=== PATIENT | male | born 1990 | race Caucasian/White ===

== ENCOUNTER 2021-01-18 08:12 | Emergency (ER) | payer OTHER, SELFPAY ==
[2021-01-18 08:13] VITALS: BP 130/60; PULSE 110; RESP 20; TEMP 36.7; O2SAT 99
--- NOTE | 2021-01-18 08:46 | ED.BACK ---
HPI - Back Pain/Injury General Chief Complaint: Back Pain/Injury Stated Complaint: LOW BACK PAIN Time Seen by Provider: 01/18/21 08:45 Source: patient, family and RN notes reviewed Mode of arrival: ambulatory Limitations: no limitations History of Present Illness HPI Narrative: Patient 30 years old white male presents with pain across lumbar area started last night. Patient been canoeing lately, had a lot of woodwork yesterday during daytime, last night started to have some soreness across lower back, this morning could not get out of bed. Patient denies any patient denies bowel dysfunction, bladder dysfunction, altered sensation, focal weakness, or saddle numbness,. History of intermittent lower back pain, been to chiropractor intermittently. Patient denies any fever, chills, nausea, vomiting. Related Data Home Medications Medication Instructions Recorded Confirmed Preventative inhaler INHALATION 09/16/20 Rescue inhaler INHALATION 09/16/20 cetirizine mg 01/18/21 Allergies Allergy/AdvReac Type Severity Reaction Status Date / Time Sulfa (Sulfonamide Allergy Mild PARENT HAS Verified 01/18/21 08:19 Antibiotics) SEVERE ALLERGY amoxicillin Allergy Unknown VOMITING Verified 01/18/21 08:19 animal dander Allergy Unknown Sneezing Verified 01/18/21 08:19 cephalexin Allergy Unknown VOMITING Verified 01/18/21 08:19 grass pollen Allergy Unknown Sneezing Verified 01/18/21 08:19 mold Allergy Unknown Sneezing Verified 01/18/21 08:19 Penicillins Allergy Unknown Vomiting Verified 01/18/21 08:19 pollen extracts Allergy Unknown Sneezing Verified 01/18/21 08:19 [place] Allergy Mild RESPIRATORY Uncoded 09/16/20 13:38 DIFFICULTY Review of Systems Review of Systems: CONSTITUTIONAL: Denies fever, chills, or sweats. EYES: Denies visual changes, redness, or discharge. ENT: Denies rhinorrhea, congestion, sore throat, or otalgia. CARDIOVASCULAR: Denies chest pain, palpitations, or edema. RESPIRATORY: Denies cough or dyspnea. GASTROINTESTINAL: Denies abdominal pain, nausea, vomiting, or diarrhea. GENITOURINARY: Denies dysuria or hematuria. SKIN: Denies rash or itching. MUSCULOSKELETAL: Denies back pain, joint pain, or myalgia. NEUROLOGIC: Denies headache, numbness, or weakness. PSYCHIATRIC: Denies anxiety or depression. PMFSH Social History Social History Smoking status: Light tobacco smoker Tobacco type: cigarettes Alcohol intake: current Substance use: never Substance use type: does not use Gender identity (if verbalized by the patient): Male Exam Narrative: General appearance: Well-developed, well-nourished Skin: Normal color Head: Normocephalic, nontraumatic Eyes: Clear conjunctiva ENT: Oropharynx normal, ears normal, nose normal Neck: Supple, nontender Chest and respiratory: Airway patent, no respiratory distress, no accessory muscle use Heart: Regular rate/rhythm Abdomen: Soft, nontender, no organomegaly, quiet bowel sounds Vascular: Normal peripheral pulses, normal capillary refill. Musculoskeletal: Diffuse tenderness at the lumbar area, limited range of motion, negative straight leg raising test Neurologic: Alert and oriented ?3, SOFTWARE LEAD is normal as tested, no gross motor deficit Course Course Emergency Course: Improving Vital Signs Vital signs: Vital Signs Temperature 36.7 C 01/18/21 08:13 Pulse Rate 110 H 01/18/21 08:13 Respiratory Rate 20 01/18/21 08:13 Blood Pressure 130/60 01/18/21 08:13 Pulse Oximetry 99 01/18/21 08:13 Temperature 36.7 C 01/18/21 08:13 Pulse Rate 110 H 01/18/21 08:13 Respiratory Rate 20 01/18/21 08:13 Blood Pressure
[2021-01-18] MEDS: diazePAM (*CRX) 5 MG TABLET PO (09:03)
[2021-01-18] MEDS: ONDANSETRON HCL ODT 4 MG TABLET PO (09:03)
[2021-01-18] MEDS: HYDROmorphone HCL INJ (*CRX) 1 MG/ML SYR IM (09:03)
[2021-01-18] MEDS: KETOROLAC (*BKC) 60 MG/2 ML VIAL IM (09:03)
[2021-01-18 09:33] VITALS: TEMP 36.7
[2021-01-18 09:38] VITALS: BP 120/65; PULSE 58; RESP 18; O2SAT 97
== END 2021-01-18 09:40 | disposition home or self-care (01) ==
PROVIDERS: Emergency Provider Emergency Medicine
DX: S39.012A Strain of muscle, fascia and tendon of lower back, initial encounter (principal); F17.210 Nicotine dependence, cigarettes, uncomplicated; X58.XXXA Exposure to other specified factors, initial encounter
CPT/HCPCS: 96372; 99284; A9270; J1170; J1885

== ENCOUNTER → 2021-07-18 02:42 | Outpatient (CLI) | payer OTHER, SELFPAY ==
[2021-07-18 18:24] LABS: SARS-CoV-2 RNA PCR Positive
== END ==
PROVIDERS: PCP Emergency Medicine; Visit Provider Emergency Medicine
DX: U07.1 COVID-19 (principal)
CPT/HCPCS: C9803; U0003; U0005

== ENCOUNTER 2023-01-26 09:42 | Emergency (ER) | payer OTHER, SELFPAY ==
--- NOTE | ~2023-01-26 | XR_ITS ---
EXAMINATION: XR chest 2V DATE: 01/26/2023 10:05 INDICATION: Left anterior chest pain. Shortness of breath. TECHNIQUE: Frontal and lateral views of the chest were obtained. COMPARISON: Chest 2 views 03/15/2017 FINDINGS: There is no pneumonia, pleural effusion, or pneumothorax. The heart size is normal. IMPRESSION: 1. No acute cardiopulmonary disease. Reviewed, dictated and finalized at location A.
--- NOTE | ~2023-01-26 | XR_ITS ---
EXAMINATION: XR ribs LT 2V DATE: 01/26/2023 10:59 INDICATION: Left anterior rib pain. TECHNIQUE: 2 views of the left ribs on 3 radiographs were obtained. COMPARISON: None. FINDINGS: There is no left-sided pneumonia, pleural effusion, or pneumothorax. The heart size is norm al. IMPRESSION: 1. No rib fracture. Reviewed, dictated and finalized at location A. IMPRESSION: 1. No rib fracture.
--- NOTE | 2023-01-26 09:45 | ED.CHESTPAIN ---
HPI - Chest Pain General Chief Complaint: Chest Pain Stated Complaint: chest pain/SOB Time Seen by Provider: 01/26/23 09:45 Source: patient Mode of arrival: ambulatory Limitations: no limitations History of Present Illness HPI narrative: patient is a 32-year-old male with a injury to his left chest 1 week ago. Patient ran into the back of his trailer at this site of his left chest. He has been having worsening pain to this left chest area for the past week. MD complaint: chest pain Onset (ago): week(s) (1) Timing of current episode: constant Prior episodes: No Onset: during exertion Pain location: left chest Pain radiation: none Severity: moderate Pain scale (0-10): 6 Quality: sharp Relieving factors: rest Exacerbating factors: palpation and movement Context: trauma/injury Treatment prior to arrival: none Risk Factors Coronary artery disease risk factors: none Thoracic aortic dissection risk factors: none Related Data Home Medications Medication Instructions Recorded Confirmed Preventative inhaler inhalation 09/16/20 Rescue inhaler inhalation 09/16/20 cetirizine 10 mg tablet mg 01/18/21 Allergies Allergy/AdvReac Type Severity Reaction Status Date / Time Sulfa (Sulfonamide Allergy Mild PARENT HAS Verified 01/26/23 09:58 Antibiotics) SEVERE ALLERGY amoxicillin Allergy Unknown VOMITING Verified 01/26/23 09:58 animal dander Allergy Unknown Sneezing Verified 01/26/23 09:58 cephalexin Allergy Unknown VOMITING Verified 01/26/23 09:58 grass pollen Allergy Unknown Sneezing Verified 01/26/23 09:58 mold Allergy Unknown Sneezing Verified 01/26/23 09:58 Penicillins Allergy Unknown Vomiting Verified 01/26/23 09:58 pollen extracts Allergy Unknown Sneezing Verified 01/26/23 09:58 [place] Allergy Mild RESPIRATORY Uncoded 01/26/23 09:58 DIFFICULTY Review of Systems Review of Systems: All systems reviewed & are unremarkable except as noted in HPI and below Constitutional: Constitutional: Reports no additional constitutional complaints Eyes: Eyes: Reports no additional eye complaints ENT: Reports system reviewed and no additional complaints, except as documented Cardiovascular: Cardiovascular: Reports no additional cardiovascular complaints Respiratory: Respiratory: Reports no additional respiratory complaints Gastrointestinal: Gastrointestinal: Reports no additional gastrointestinal complaints Genitourinary: Genitourinary: Reports no additional male genitourinary complaints Musculoskeletal: Musculoskeletal: Reports no additional musculoskeletal complaints Integumentary/Breasts: Skin/Breast: Reports system reviewed and no additional complaints, except as docu Neurologic: Reports system reviewed and no additional complaints, except as documented Psychiatric: Psychiatric: Reports no additional psychiatric complaints Endocrine: Endocrine: Reports no additional endocrine complaints Hematologic/Lymphatic: Hematologic/Lymphatic: Reports no additional hematologic/lymphatic complaints Allergic/Immunologic: Allergic/Immunologic: Reports no additional allergic/immunologic complaints PMFSH Social History Social History Smoking status: Light tobacco smoker Tobacco type: cigarettes Alcohol intake: current Substance use: never Substance use type: does not use Gender identity (if verbalized by the patient): Male Exam Const: General: healthy appearing Nutritional Appearance: well nourished HENMT: Head: normal to inspection Ears: external ears normal Eyes: Conjunctivae: conjunctivae normal Pupils: Equal, round and reactive pupils present Neck: Neck: normal visual inspection Chest: Chest palpation & inspection: normal inspection of the chest Resp: Effort & Inspection: normal respiratory effort Auscultation: clear to auscultation bilaterally Cardio: Rate: regular rate Rhythm: regular rhythm Other: Tender to palpate the l
[2023-01-26 09:48] VITALS: BP 110/70; PULSE 68; RESP 18; TEMP 36.2; O2SAT 97
--- NOTE | 2023-01-26 09:50 | ECG_ITS ---
Measurements Intervals [place] Rate: 69 P: 78 [place]: 141 QRS: 98 QRSD: 104 T: 78 QT: 406 QTc: 436 Interpretive Statements SINUS RHYTHM RIGHT TO LEFT ARM LEAD TRANSPOSITION EARLY REPOLARIZATION OTHERWISE WITHIN NORMAL LIMITS Electronically Signed On 01-26-2023 13:28:54 CDT by Kash Santos M.D.
[2023-01-26 10:12] LABS: Hematocrit 45.1 % (40.0-54.0); Mean Corpuscular HGB Conc 33.3 g/dL (32.0-36.0); Mean Corpuscular Hemoglobin 29.7 pg (27.0-31.0); Mean Corpuscular Volume 89.3 fL (78.0-102.0); Mean Platelet Volume 9.1 fl (8.7-11.0); Platelet Count Result 264 K/mm3 (150-420); Red Blood Count 5.05 M/mm3 (4.70-6.10); Red Cell Distribution Width 12.1 % (11.6-14.4); White Blood Count 5.3 K/mm3 (4.8-10.8)
[2023-01-26 10:24] LABS: Band Neutrophils Percent 0 % (0-6); Basophils Absolute Manual 0.05 K/mm3 (0-0.1); Basophils Percent Manual 1 % (0-1); Eosinophils Absolute Manual 0.31 K/mm3 (0.02-0.5); Eosinophils Percent Manual 6 % (1-6); Lymphocytes Percent Manual 34 % (18-44); Monocytes Absolute Manual 0.31 K/mm3 (0.1-0.90); Monocytes Percent Manual 6 % (3-9); Neutrophils Percent Manual 53 % (46-73); Platelet Estimate Adequate (Adequate); Total Cells Counted 100
[2023-01-26] MEDS: KETOROLAC (*BKC) 60 MG/2 ML VIAL IM (10:27)
[2023-01-26 10:34] LABS: Alanine Aminotransferase 27 U/L (16-63); Alkaline Phosphatase 71 U/L (46-116); Anion Gap 8 mmol/L (8-16); Aspartate Amino Transferase 17 U/L (15-37); Bilirubin,Total 0.4 mg/dL (0.00-1.00); Blood Urea Nitrogen 18 mg/dL (7-18); Calcium 8.8 mg/dL (8.5-10.1); Carbon Dioxide 30 mmol/L (21-32); Chloride 106 mmol/L (98-108); Estimated CRCL calculation 100 ml/min; Estimated Glomerular Filt Rate > 60; Glucose 66 mg/dL (70-99); Osmolality Calculated 297 mOsm/kg (285-295); Potassium 4.1 mmol/L (3.5-5.1); Sodium 144 mmol/L (136-145); Total Protein 7.1 g/dL (6.4-8.2)
[2023-01-26 10:35] LABS: Troponin I 4.6 ng/L (0.00-60.4)
[2023-01-26 11:15] VITALS: BP 117/74; PULSE 48; RESP 16; O2SAT 97
[2023-01-26 12:10] VITALS: BP 111/71; PULSE 67; RESP 15; TEMP 36.6; O2SAT 97
== END 2023-01-26 12:08 | disposition home or self-care (01) ==
PROVIDERS: Emergency Provider Emergency Medicine; PCP Physician Assistant
DX: S62.522B Displaced fracture of distal phalanx of left thumb, initial encounter for open fracture (principal); F17.210 Nicotine dependence, cigarettes, uncomplicated; W22.09XA Striking against other stationary object, initial encounter
CPT/HCPCS: 12001; 36415; 71046; 71100; 80053; 84484; 85025; 93005; 96372; 99284; J1885

== ENCOUNTER 2023-04-30 10:08 | Emergency (ER) | payer OTHER, SELFPAY ==
--- NOTE | 2023-04-30 10:18 | ED.GENADULT ---
HPI - General Adult General Chief complaint: Upper Respiratory Infection Stated complaint: Trouble Breathing, Headache, Sore Throat Source: patient and RN notes reviewed History of Present Illness HPI narrative: 32 yo M presents to urgent care with complaints of an asthma exacerbation. Pt states his asthma has been giving him a little bit of issues this week but last night, he got a deer and was dragging it out of the bobby when the asthma got worse. Pt reports wheezing, SOB, and midsternal chest discomfort. Denies any fevers, chills, sore throat, ear pain, N/V/D. Pt used his nebulizer machine OFFICIAL COURT REPORTER. Related Data Home Medications Medication Instructions Recorded Confirmed Preventative inhaler inhalation 09/16/20 Rescue inhaler inhalation 09/16/20 cetirizine 10 mg tablet mg 01/18/21 Allergies Allergy/AdvReac Type Severity Reaction Status Date / Time Sulfa (Sulfonamide Allergy Mild PARENT HAS Verified 01/26/23 09:58 Antibiotics) SEVERE ALLERGY amoxicillin Allergy Unknown VOMITING Verified 01/26/23 09:58 animal dander Allergy Unknown Sneezing Verified 01/26/23 09:58 cephalexin Allergy Unknown VOMITING Verified 01/26/23 09:58 grass pollen Allergy Unknown Sneezing Verified 01/26/23 09:58 mold Allergy Unknown Sneezing Verified 01/26/23 09:58 Penicillins Allergy Unknown Vomiting Verified 01/26/23 09:58 pollen extracts Allergy Unknown Sneezing Verified 01/26/23 09:58 [place] Allergy Mild RESPIRATORY Uncoded 01/26/23 09:58 DIFFICULTY Review of Systems Review of Systems: Pertinent positives and pertinent negatives per HPI. PMFSH Social History Social History Smoking status: Light tobacco smoker Tobacco type: cigarettes Alcohol intake: current Substance use: never Substance use type: does not use Gender identity (if verbalized by the patient): Male Comments At the time of my signature, I reviewed and agree with the nursing past medical, surgical, social, and family history. There is no relevant family history pertinent to the patient complaint. Exam Narrative: GENERAL: This is a well-nourished, well-developed patient, in no apparent distress. HEAD: normocephalic, atraumatic. EYES: Sclera clear/white. Vision is grossly intact. EARS: External ears normal, auditory canals clear and without drainage. Hearing grossly intact. NOSE: External nose normal with no obvious nasal discharge, nares without redness, no rhinorrhea. NECK: Neck supple, non-tender without lymphadenopathy, masses or thyromegaly. CARDIOVASCULAR: Regular rate and rhythm without murmurs, gallops, or rubs. RESPIRATORY: Wheezing and rhonchi noted throughout. Pt speaking in full sentences. GASTROINTESTINAL: Abdomen soft, non-tender, nondistended. Bowel sounds are active. No hepato-splenomegaly, or palpable masses. No guarding. SKIN: warm, intact with no suspicious lesions or rash, good texture and turgor. NEURO: awake, alert, and oriented to person, place and time. There were no obvious focal neurologic abnormalities. Course Course Level of Care: Express Care Visit Vital Signs Vital signs: Vital Signs Temperature 97.6 F 04/30/23 10:19 Pulse Rate 84 04/30/23 10:19 Respiratory Rate 16 04/30/23 10:19 Blood Pressure 126/82 04/30/23 10:19 Pulse Oximetry 95 04/30/23 10:19 Oxygen Delivery Room Air 04/30/23 10:19 Temperature 97.6 F 04/30/23 10:19 Pulse Rate 84 04/30/23 10:19 Respiratory Rate 16 04/30/23 10:19 Blood Pressure 126/82 04/30/23 10:19 Pulse Oximetry 95 04/30/23 10:19 Oxygen Delivery Room Air 04/30/23 10:19 Reviewed Medical Decision Making MDM Narrative Medical decision making narrative: Do not smoke. Avoid smoke of any kind. May use a humidifier in the bedroom. Get plenty of fluids and rest. Take steroids as directed. Use your nebulizer every 4-6 hours if needed. Follow up with your MD in 2-5 days. Go to the
[2023-04-30 10:19] VITALS: BP 126/82; PULSE 84; RESP 16; TEMP 36.4; O2SAT 95
[2023-04-30] MEDS: predniSONE 20 MG TABLET 60 MG PO (10:34)
== END 2023-04-30 10:38 | disposition home or self-care (01) ==
PROVIDERS: Emergency Provider Nurse Practitioner Family; PCP Physician Assistant
DX: J45.901 Unspecified asthma with (acute) exacerbation (principal); F17.210 Nicotine dependence, cigarettes, uncomplicated
CPT/HCPCS: 99213; G0463; J7512

== ENCOUNTER 2025-04-14 07:37 | Emergency (ER) | payer OTHER, SELFPAY ==
--- NOTE | ~2025-04-14 | XR_ITS ---
Examination: XR chest 1V portable Clinical History: chest pain, cough, congestion x2 weeks; worsening Comparison: X-rays 01/26/2023 Technique: Portable AP Findings: Heart size normal. Lungs clear. No acute bony abnormality. IMPRESSION: 1. No acute cardiopulmonary findings given portable technique. Reviewed, dictated and finalized at location R.
[2025-04-14 07:37] VITALS: BP 119/85; PULSE 88; RESP 17; TEMP 37.6; O2SAT 94
--- NOTE | 2025-04-14 07:47 | PC.NURSE ---
COVID CULTURE SENT TO LAB
[2025-04-14] MEDS: IPRATROPIUM 0.5 MG/ALBUTEROL SULFATE 2.5 MG (BASE) AMPUL.NEB 3 ML INHALATION (07:50)
--- NOTE | 2025-04-14 07:55 | ED_ITS ---
HPI - URI/Sore Throat General Chief Complaint: Upper Respiratory Infection Stated Complaint: cold symptoms Time Seen by Provider: 04/14/25 07:40 Source: patient Mode of arrival: ambulatory Limitations: no limitations History of Present Illness HPI Narrative: This is a 34-year-old male with no significant past medical history is a has a smoking history presents with approximately a 4 day history of cough congestion and fever is currently no shortness of breath no chest pain is coughing up yellow sputum with some episodes of nausea and vomiting currently no chest pain no nausea vomiting no abdominal pain no diarrhea constipation. MD elicited complaint: fever, cough and nasal congestion Onset (ago): day(s) Consistency: constant Severity: moderate Description of mucous: yellow Related Data Home Medications ?Medication ?Instructions ?Recorded ?Confirmed ?Last Taken ?Type Preventative inhaler inhalation 09/16/20 Unknown History Rescue inhaler inhalation 09/16/20 Unknown History cetirizine 10 mg tablet mg 01/18/21 Unknown History Allergies Allergy/AdvReac Type Severity Reaction Status Date / Time Sulfa (Sulfonamide Allergy Mild PARENT HAS Verified 04/14/25 07:39 Antibiotics) SEVERE ALLERGY amoxicillin Allergy Unknown VOMITING Verified 04/14/25 07:39 animal dander Allergy Unknown Sneezing Verified 04/14/25 07:39 cephalexin Allergy Unknown VOMITING Verified 04/14/25 07:39 grass pollen Allergy Unknown Sneezing Verified 04/14/25 07:39 mold Allergy Unknown Sneezing Verified 04/14/25 07:39 Penicillins Allergy Unknown Vomiting Verified 04/14/25 07:39 pollen extracts Allergy Unknown Sneezing Verified 04/14/25 07:39 [place] Allergy Mild RESPIRATORY Uncoded 01/26/23 09:58 DIFFICULTY Review of Systems Review of Systems: All systems reviewed & are unremarkable except as noted in HPI and below PMFSH Past Medical History Medical History Patient denies medical problems Social History Social History Smoking status: Light tobacco smoker Tobacco type: cigarettes Alcohol intake: current Substance use: never Substance use type: does not use Gender identity (if verbalized by the patient): Male Exam Const: General: healthy appearing and no acute distress Nutritional Appearance: well nourished Orientation/consciousness: patient oriented x3 Limitations: no limitations HENMT: Head: normal to inspection Neck: Neck: normal visual inspection and no lymphadenopathy Chest: Chest palpation & inspection: normal inspection of the chest Resp: Effort & Inspection: normal respiratory effort Auscultation: wheezes Cardio: Rate: regular rate Rhythm: regular rhythm GI: GI Palp: Yes Soft to palpation Auscultation: normal bowel sounds Skin: General skin exam: normal color Course Course Emergency Course: Medical decision making narrative: The patient was evaluated by myself in the emergency department. History obtained from the patient was an independent historian physical exam performed with this by tech. Patient had chest x-ray performed which showed no acute cardiopulmonary abnormalities. COVID RSV influenza performed and reviewed with patient Patient received DuoNeb treatment. Repeat assessment: Patient doing well on repeat exam with no acute distress Symptoms have improved since arrival to the emergency department. Repeat vital stable Patient agrees with discussion and after shared medical decision and agrees with discharge. All questions answered to the patient's satisfaction. Vital Signs Vital signs: Vital Signs Temperature 37.6 C H 04/14/25 07:37 Pulse Rate 88 04/14/25 07:37 Respiratory Rate 17 04/14/25 07:37 Blood Pressure 119/85 04/14/25 07:37 Pulse Oximetry 94 04/14/25 07:37 Oxygen Delivery Room Air 04/14/25 07:37 Temperature 37.4 C 04/14/25 08:36 Pulse Rate 73 04/14/25 08:36 Respiratory Rate 18 04/14/25 08:36 Blood Pressure 116/75 04/14/25 08:36 Pulse Oximetry 94 04/14/25 08:36 Oxygen Delivery Room Air 04/14/25 07:37 MDM - URI/Sore Throat Lab Data Labs: Lab Results 04/14/25 Range/Units 07:44 Influenza A (RT-PCR) Negative (Negative) Influenza B (RT-PCR) Negative (Negative) RSV (RT-PCR) Negative (Negative) SARS-CoV-2 RNA (RT-PCR) Negative (Negative) Critical Care Time Critical Care Time Critical Care Time: No Discharge Plan Discharge Clinical Impression: Upper respiratory infection Qualifiers: Pharyngitis/tonsillitis etiology: unspecified etiology Patient Disposition: Home Condition: Stable Instructions: Antibiotic Form, Upper Respiratory Infection (ED) Additional Instructions: Advised patient to take medication as prescribed and to follow with primary care physician in 3 to 5 days for further evaluation and treatment. Patient Language: Citizen Of [place] Prescriptions: New levofloxacin 500 mg tablet 500 mg PO DAILY Qty: 7 0RF prednisone 20 mg tablet 20 mg PO DAILY Qty: 7 0RF ProAir RespiClick 90 mcg/actuation aerosol powdr breath activated 2 inh inhalation QID PRN (Reason: shortness of breath or wheezing) Qty: 1 0RF No Action prednisone 20 mg tablet 40 mg PO DAILY 5 Days Qty: 10 0RF Preventative inhaler inhalation Rescue inhaler inhalation cetirizine 10 mg tablet Follow-up/Referrals: Libby,DILLON Stallings [Primary Care Provider] Time of Disposition: 08:27
[2025-04-14 08:00] VITALS: BP 102/66; PULSE 77; RESP 18; O2SAT 97
[2025-04-14 08:23] LABS: Influenza A QL RT-PCR Negative (Negative); Influenza B QL RT-PCR Negative (Negative); RSV RNA, RT-PCR Negative (Negative); SARS-CoV-2 RNA PCR Negative (Negative)
--- OUTSIDE RECORDS SUMMARY | 2025-04-14 08:34 | XMS_ITS | Clinical Summary ---
Author Organization [facility] Address [address] [place] [address] Phone Care Team Providers Care Cafeteria Clerk Name Role Phone Unavailable Primary Care Provider Unavailabl e Allergies Active Allergy Reactions Criticality Noted Date Comments Amoxicillin Nausea and Vomiting Low 04/19/2024 Cephalexin Nausea and Vomiting Low 04/19/2024 Sulfa (Sulfonamide Antibiotics) Unknown 03/23 Medications albuterol sulfate HFA 90 mcg/actuation aerosol inhaler Take 2 Puffs by inhalation every 6 hours as needed for Shortness of Breath. Active clindamycin HCL (CLEOCIN) 300 mg Capsule Take 1 Capsule (300 mg) by mouth 4 times daily. 40 Capsule 04/19/2024 11:02 PM CDT 4 Active oxyCODONE-aceta minophen (PERCOCET) 5-325 mg tabletIndicatio ns:Crushing injury of right ring finger, initial encounter,Open displaced fracture of distal phalanx of right ring finger, initial encounter Take 1 Tablet by mouth every 4 hours as needed for Pain. Max Daily Amount: 6 Tablets 20 Tablet 04/19/2024 11:02 PM CDT 4 Active Encounters Date Type Department Care Team Description 04/11/2025 External Device Data [facility] Provider, Abstract 04/10/2025 External Device Data [facility] Provider, Abstract 04/03/2025 External Device Data [facility] Provider, Abstract 03/06/2025 External Device Data [facility] Provider, Abstract 02/20/2025 External Device Data [facility] Provider, Abstract 02/20/2025 External Device Data [facility] Provider, Abstract from Last 3 Months Social History Tobacco Use Types Packs/Day Years Used Date Smoking Tobacco: Every Day Cigarettes Tobacco Cessation:Ready to Q uit: Not Asked; Counseling Given: Not Answered Alcohol Use Standard Drinks/Week Comments Not Currently 0 (1 standard drink = 0.6 oz pur e alcohol) Feeling Safe Answer Date Recorded Are you in a relationship wi th someone who hurts you emotionally and/or physically? 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 Legal Sex Male 7:23 PM CDT Gender Identity Male 04/27/2024 9:33 AM CORE INSERTER Sexual Orientation Straight 04/27/2024 9: 33 AM CORE INSERTER Last Filed Vital Signs Vital Sign Reading Time Taken Comments Blood Pressure 111/57 04/19/2024 10:43 PM CDT Pulse 71 04/19/2024 10:43 PM CDT Temperature 36.2 C (97.1 F) 04/19/2024 10:43 PM CDT Respiratory Rate 16 04/19/2024 10:43 PM CDT Oxygen Saturation 95% 04/19/2024 10:43 PM CDT Inhaled Oxygen Concentration - - Weight 63.5 kg (140 lb) 04/19/2024 7:30 PM CDT Height 177.8 cm (5' 10) 04/19/2024 7:30 PM CDT Body Mass Index 20.09 04/19/2024 7:30 PM CDT Plan of Treatment Health Maintenance Due Date Last Done Comments DTAP/TDAP/TD VACCINES (1 - Tdap) 2009 HEPATITIS B VACCINES (1 of 3 - 19+ 3-dose series) 2009 HPV VACCINES (1 - 3-dose SCDM series) 2017 INFLUENZA VACCINE (#1) 2025 COVID-19 Vaccine (3 - 2024- season) 2025, 12/16/[address] [place] [address] [place] [address] BENEFIT PLANS RX [facility] [employer] [facility] [employer] (INTERNAL) [facility]
[2025-04-14 08:36] VITALS: BP 116/75; PULSE 73; RESP 18; TEMP 37.4; O2SAT 94
== END 2025-04-14 08:36 | disposition home or self-care (01) ==
PROVIDERS: Emergency Provider Emergency Medicine; PCP Physician Assistant
DX: J06.9 Acute upper respiratory infection, unspecified (principal); F17.210 Nicotine dependence, cigarettes, uncomplicated; Z20.822 Contact with and (suspected) exposure to COVID-19
CPT/HCPCS: 71045; 87637; 99283